=== PATIENT | female | born 1995 | race Caucasian/White ===

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

== ENCOUNTER 2018-06-12 07:31 | Emergency (ER) | payer BC ==
[2018-06-12 07:48] VITALS: BP 133/84
--- NOTE | 2018-06-12 08:00 | UC ---
Respiratory Complaint HPI - HPI Summary HPI Summary: 23 y/o female presents to the urgent care c/o nasal congestion w/ yellowish and bloody nasal discharge, RUTLEDGE, body aches, chills, hoarseness, mild sore throat for the past 4 days. Pt is concerned about the flu. Pt states RUTLEDGE is 6/10. She took Mucinex PO yesterday to alleviate symptoms. Pt denies dizziness, fever, ear pains, SOB, chest pain, abdominal pain,N/V/D. Pt is UTD w/ all vaccines for her age. - History of Current Complaint Chief Complaint: UCRespiratory Stated Complaint: COUGH,CONGESTION,BLOOD IN MUCUS Time Seen by Provider: 06/12/18 07:56 Hx Obtained From: Patient Hx Last Menstrual Period: 06/08/18 ?: No Onset/Duration: Gradual Onset, Lasting Days - 4 days, Worse Since - today Timing: Constant Severity Initially: Mild Severity Currently: Moderate Pain Intensity: 6 - RUTLEDGE Pain Scale Used: 0-10 Numeric Character: Cough: Nonproductive Aggravating Factors: Other - nasal congestion Associated Signs And Symptoms: Positive: Chills, URI, Nasal Congestion, Hoarseness, Sinus Discomfort. Negative: Wheezing, Hemoptysis, Dizziness - Risk Factors Pulmonary Embolism Risk Factors: Negative Cardiac Risk Factors: Negative Pseudomonas Risk Factors: Negative Tuberculosis Risk Factors: Negative - Allergies/Home Medications Allergies/Adverse Reactions: Allergies Allergy/AdvReac Type Severity Reaction Status Date / Time No Known Allergies Allergy Verified 06/12/18 07:39 Home Medications: Home Medications Escitalopram (NF) [Lexapro 10 mg (NF)] 10 mg PO DAILY 06/12/18 [History Confirmed 06/12/18] Norethindrone-Ethinyl Estrad [Porsche 28 Tablet] 1 tab PO DAILY 06/12/18 [History Confirmed 06/12/18] PMH/Surg Hx/FS Hx/Imm Hx Previously Healthy: Yes Psychological History: Anxiety - Surgical History Surgical History: None - Family History Known Family History: Positive: None - Pt denies FMHX Negative: Cardiac Disease, Hypertension, Diabetes - Social History Occupation: Student Lives: With Family Alcohol Use: Occasionally Substance Use Type: None Smoking Status (MU): Never Smoked Tobacco Have You Smoked in the Last Year: No - Immunization History Most Recent Influenza Vaccination: none Hx Tetanus, Diphtheria Vaccination: Yes Vaccination Up to Date: Yes Review of Systems All Other Systems Reviewed And Are Negative: Yes Constitutional: Positive: Chills, Other - body aches Skin: Positive: Negative Eyes: Positive: Negative ENT: Positive: Sore Throat - mild, Nasal Discharge - yellowish and bloody nose, Sinus Congestion, Sinus Pain/Tenderness Respiratory: Positive: Cough - dry Cardiovascular: Positive: Negative Gastrointestinal: Positive: Negative Genitourinary: Positive: Negative Motor: Positive: Negative Neurovascular: Positive: Negative Musculoskeletal: Positive: Negative Neurological: Positive: Headache Psychological: Positive: Negative Is Patient Immunocompromised?: No Physical Exam - Summary Physical Exam Summary: Vital Signs Reviewed: Yes General: well developed, well nourished female sitting in the examining table w/ o any apparent distress Eyes: Positive: Conjunctiva Clear - PERRLA, EOMI, fundi grossly normal ENT: Positive: Normal ENT inspection, Hearing grossly normal, Pharynx normal, Nasal congestion - edematous and erythematous nasal mucosa, Nasal drainage - yellowish drainage, TMs normal. Negative: Tonsillar swelling, Tonsillar exudate Neck: Positive: Supple, Nontender, No Lymphadenopathy Respiratory: no orthopnea or dyspnea. Able to speak in full sentences, no retractions or accessory muscle use, no tripod position, stridor, or head bobbing. Positive breath sounds bilaterally. diffuse scattered wheezing and rhonchi on b/L lungs, no crackles or rales. Cardiovascular: Positive: RRR, No Murmur, Pulses Normal, Brisk Capillary Refill Abdomen Description: Positive: Nontender, No Organomegaly, Soft. Negative: CVA Tenderness (R), CVA Tenderness (L) Bowel Sounds: Positive: Present Musculoskeletal Exam: Normal Musculoskeletal: Positive: Strength Intact, ROM Intact, No Edema Neurological Exam: Normal Psychological Exam: Normal Skin Exam: Normal Triage Information Reviewed: Yes Vital Signs: Initial Vital Signs Temp 98.6 F 06/12/18 07:43 Pulse 82 06/12/18 07:43 Resp 16 06/12/18 07:43 BP 133/84 06/12/18 07:43 Pulse Ox 99 06/12/18 07:43 Diagnostic Evaluation - Laboratory O2 Sat by Pulse Oximetry: 99 Respiratory Course/Dx - Course Course Of Treatment: 23 y/o female presents to the urgent care c/o nasal congestion w/ yellowish and bloody nasal discharge, RUTLEDGE, body aches, chills, hoarseness, mild sore throat for the past 4 days. Pt is concerned about the flu. Pt states RUTLEDGE is 6/10. She took Mucinex PO yesterday to alleviate symptoms. Pt denies dizziness, fever, ear pains, SOB, chest pain, abdominal pain,N/V/D. Pt is UTD w/ all vaccines for her age. Hx obtained. Pt w/ URI symptoms on examination. Rapid influenza A&B=negative. Pt advised to increase fluid intake, rest and eat well, Rx Ibuprofen, Flonase Nasal spray and advised to use saline drops to clear sinuses. Continue w/ Mucinex PO to alleviate cough. D/C instructions explained. Pt understood and agreed with plan of care. - Differential Dx/Diagnosis Differential Diagnosis/HQI/PQRI: Bronchitis, Influenza, Lower Resp Infection, Sinusitis, Other - pharyngitis, URI Provider Diagnosis: Upper respiratory infection Discharge - Sign-Out/Discharge Documenting (check all that apply): Patient Departure - D/c home All imaging exams completed and their final reports reviewed: No Studies - Discharge Plan Condition: Stable Disposition: HOME Prescriptions: Fluticasone NASAL SPRAY 50MCG* [Flonase NASAL SPRAY 50MCG*] 2 spray BOTH NARES DAILY #1 btl Ibuprofen TAB* [Motrin TAB* 600 MG] 600 mg PO Q6H PRN #30 tab PRN Reason: Headache Patient Education Materials: Upper Respiratory Infection (ED) Forms: *School Release Referrals: [facility] [place]] - 3 Days Additional Instructions: 1- Please increase fluid intake and rest. take Ibuprofen PO q6-8hrs after meals to alleviate RUTLEDGE 2-Use Flonase Nasal spray as directed to help drain fluid. Also buy saline drops to clear sinuses 3-Continue taking Mucinex PO to alleviate cough 4-Return to the clinic or PCP in 3 days if symptoms do not improve for further management and treatment - Billing Disposition and Condition Condition: STABLE Disposition: Home
== END 2018-06-12 08:37 | disposition home or self-care (01) ==
LOC: UCCORT 07:31
DX: J06.9 Acute upper respiratory infection, unspecified (principal); F41.9 Anxiety disorder, unspecified
CPT/HCPCS: 99212; G0463